=== PATIENT | male | born 2000 | race Caucasian/White ===

== ENCOUNTER 2020-04-19 14:11 | Emergency (ER) | payer OTHER ==
[2020-04-19 14:17] VITALS: BP 131/66
--- NOTE | 2020-04-19 14:45 | XRAY Report ---
Reason: fall, pain, swelling, bruising left hand Procedure Date: 04/19/2020 Accession Number: [id number] / [id number] Procedure: XR - Hand 3 View LT CPT Code: Final Report FULL RESULT: EXAM: LEFT HAND RADIOGRAPHY EXAM DATE: 04/19/2020 02:31 PM. CLINICAL HISTORY: Left hand pain. COMPARISON: None. TECHNIQUE: 3 views. FINDINGS: Bones: Normal. No fractures or bone lesions. Joints: Normal. No subluxations. Soft Tissues: Normal. No soft tissue swelling. IMPRESSION: Normal hand radiography. [facility]
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
== END 2020-04-19 15:11 | disposition home or self-care (01) ==
LOC: ED 14:11
DX: S63.92XA Sprain of unspecified part of left wrist and hand, initial encounter (principal); S60.222A Contusion of left hand, initial encounter; V19.9XXA Pedal cyclist (driver) (passenger) injured in unspecified traffic accident, initial encounter; Y93.55 Activity, bike riding
CPT/HCPCS: 99282; 99283